=== PATIENT | male | born 1940 | race Caucasian/White ===

== ENCOUNTER 2021-11-13 22:11 | Emergency (ER) | payer OTHER ==
[~2021-11-13] VITALS: Ht 162.6 cm; Wt 90.9 kg
[2021-11-14] MEDS ORDERED: HYDROmorphone HCL 2 MG/ML VL/or syr IV ONE ×2 (02:00→06:15)
[2021-11-14 03:11] LABS: Basophils # (auto) 0.1 10 ^3/uL (0-0.2); Basophils % (auto) 0.4 % (0.0-2.0); Eosinophils # (auto) 0.1 10 ^3/uL (0-0.8); Eosinophils % (auto) 0.8 % (0.0-7.0); Hematocrit 40.1 % (41.0-53.0); Hemoglobin 12.9 g/dL (13.5-17.5); Lymphocytes # (auto) 1.7 10 ^3/uL (0.4-5.4); Lymphocytes % (auto) 12.9 % (10.0-50.0); Mean Corpuscular Hemoglobin 28.1 pg (28.0-32.0); Mean Corpuscular Hgb Conc. 32.3 g/dL (32.0-36.0); Monocytes % (auto) 7.1 % (0.0-12.0); Neutrophils # (auto) 10.6 10 ^3/uL (1.6-8.6); Neutrophils % (auto) 78.8 % (37.0-80.0); Red Blood Cells 4.61 10^6/uL (4.5-5.90); Red Cell Distribution Width 15.7 % (11.8-14.3); White Blood Cell 13.4 10^3/uL (4.4-10.8)
[2021-11-14 03:29] LABS: Calcium 8.6 mg/dL (8.5-10.1); Potassium 3.7 mmol/L (3.5-5.1)
[2021-11-14 03:31] LABS: BUN/Creatinine Ratio 18.9
[2021-11-14 03:34] LABS: Bilirubin, Total 0.6 mg/dL (0.2-1.0); Total Protein 6.2 g/dL (6.4-8.2)
[2021-11-14 10:19] VITALS: BP 149/56
== END 2021-11-14 10:40 | disposition home or self-care (01) ==
LOC: EDUNIT# 22:11 → ER 22:11 → EDBD 22:11 → ER 11-14 10:39
DX: S81.011A Laceration without foreign body, right knee, initial encounter (principal); J44.9 Chronic obstructive pulmonary disease, unspecified; E11.9 Type 2 diabetes mellitus without complications; Z20.822 Contact with and (suspected) exposure to COVID-19; X58.XXXA Exposure to other specified factors, initial encounter; Y93.89 Activity, other specified; Y92.89 Other specified places as the place of occurrence of the external cause; Y99.8 Other external cause status
CPT/HCPCS: 36415; 73562; 80053; 85025; 87426; 93005; 96374; 96376; 99285; J1170

== ENCOUNTER 2021-12-16 17:06 | Inpatient (IN) | payer OTHER ==
[~2021-12-16] VITALS: Ht 172.7 cm; Wt 97.2 kg
[2021-12-16] MEDS: SODIUM CHLORIDE 0.9% 1,000 ML IV SCH (00:20)
[2021-12-16] MEDS ORDERED: PIPERACILLIN-TAZOB 3.375GM 100 ML IV ONE (17:45)
[2021-12-16] MEDS ORDERED: SODIUM CHLORIDE 0.9% 1,000 ML IV ONE (17:45)
[2021-12-16] MEDS ORDERED: ACETAMINOPHEN 325 MG TAB PO ONE (17:45)
[2021-12-16 19:05] LABS: Basophils # (auto) 0.2 10 ^3/uL (0-0.2); Basophils % (auto) 0.9 % (0.0-2.0); Eosinophils # (auto) 0.1 10 ^3/uL (0-0.8); Eosinophils % (auto) 0.4 % (0.0-7.0); Hematocrit 43.1 % (41.0-53.0); Hemoglobin 13.7 g/dL (13.5-17.5); Lymphocytes # (auto) 0.7 10 ^3/uL (0.4-5.4); Lymphocytes % (auto) 3.6 % (10.0-50.0); Mean Corpuscular Hemoglobin 27.7 pg (28.0-32.0); Mean Corpuscular Hgb Conc. 31.8 g/dL (32.0-36.0); Mean Corpuscular Volume 87.1 fL (80.0-100.0); Monocytes # (auto) 1.5 10 ^3/uL (0-1.3); Monocytes % (auto) 7.5 % (0.0-12.0); Neutrophils # (auto) 16.9 10 ^3/uL (1.6-8.6); Neutrophils % (auto) 87.6 % (37.0-80.0); Red Blood Cells 4.94 10^6/uL (4.5-5.90); Red Cell Distribution Width 15.4 % (11.8-14.3); White Blood Cell 19.3 10^3/uL (4.4-10.8)
[2021-12-16 19:11] LABS: Albumin 2.9 g/dL (3.4-5.0); Calcium 7.7 mg/dL (8.5-10.1); Magnesium 1.7 mg/dL (1.6-2.6); Potassium 3.5 mmol/L (3.5-5.1)
[2021-12-16 19:15] LABS: BUN/Creatinine Ratio 12.6; Bilirubin, Total 0.8 mg/dL (0.2-1.0); Total Protein 6.4 g/dL (6.4-8.2)
[2021-12-16] MEDS ORDERED: MAGNESIUM SULFATE 1GM/100ML 100 ML IV ONE (19:30)
[2021-12-16 22:12] LABS: Urine Bacteria FEW /hpf (None Seen); Urine Blood 1+ /uL (Negative); Urine Hyaline Cast FEW /lpf (0 - 2); Urine WBC 242 /hpf (0 - 3); Urine WBC Clumps PRESENT /hpf (None Seen)
[2021-12-16] MEDS ORDERED: ONDANSETRON HCL 4 MG/2 ML VIAL IV PRN (22:15)
[2021-12-16] MEDS ORDERED: MORPHINE SULFATE INJ 2 MG/ml SYRG IV PRN (22:15)
[2021-12-16] MEDS ORDERED: NITROGLYCERIN 0.4 MG SL TAB SL PRN (22:15)
[2021-12-16] MEDS ORDERED: ALBUMIN 5% 250 ML IV ONE (22:15)
[2021-12-16] MEDS ORDERED: DEXTROSE (50%) 50ML SYRG IV PRN (22:15)
[2021-12-16] MEDS ORDERED: CLINDAMYCIN 600MG IV 50 ML IV SCH (22:39)
[2021-12-17] VITALS (49 sets, daily range): BP systolic 77–133; BP diastolic 26–70
[2021-12-17] MEDS: ACCU-CHEK COMFORT CURVE STRIP VI SCH ×4 (00:20→17:53)
[2021-12-17] MEDS: cefTRIAXone 1GM/50ML D5W 50 ML IV SCH ×2 (00:51→21:06)
[2021-12-17] MEDS: InsuLIN REG 1unit/0.01ml Soln (100units/ml) SC SCH ×4 (01:01→17:53)
[2021-12-17] MEDS: ACETAMINOPHEN 325 MG TAB PO PRN (01:27)
[2021-12-17] MEDS ORDERED: NOREPINEPHRINE 8 MG/250ML KIT 250 ML IV ONE (06:26)
[2021-12-17] MEDS: NOREPINEPHRINE 8 MG/250ML KIT 250 ML IV SCH (06:39)
[2021-12-17 08:17] LABS: Basophils # (auto) 0.1 10 ^3/uL (0-0.2); Basophils % (auto) 0.3 % (0.0-2.0); Eosinophils # (auto) 0.2 10 ^3/uL (0-0.8); Eosinophils % (auto) 0.9 % (0.0-7.0); Hematocrit 37.2 % (41.0-53.0); Lymphocytes # (auto) 2.5 10 ^3/uL (0.4-5.4); Mean Corpuscular Hemoglobin 28.1 pg (28.0-32.0); Mean Corpuscular Hgb Conc. 32.2 g/dL (32.0-36.0); Mean Corpuscular Volume 87.2 fL (80.0-100.0); Monocytes # (auto) 2.1 10 ^3/uL (0-1.3); Monocytes % (auto) 10.9 % (0.0-12.0); Neutrophils # (auto) 14.2 10 ^3/uL (1.6-8.6); Neutrophils % (auto) 74.9 % (37.0-80.0); Red Blood Cells 4.27 10^6/uL (4.5-5.90); Red Cell Distribution Width 15.2 % (11.8-14.3); White Blood Cell 18.9 10^3/uL (4.4-10.8)
[2021-12-17 08:45] LABS: Albumin 2.8 g/dL (3.4-5.0); Calcium 7.5 mg/dL (8.5-10.1); Potassium 3.7 mmol/L (3.5-5.1)
[2021-12-17 08:49] LABS: BUN/Creatinine Ratio 13.8; Bilirubin, Total 0.8 mg/dL (0.2-1.0)
[2021-12-17] MEDS: CLINDAMYCIN 600MG IV 50 ML IV SCH ×2 (09:57→17:43)
[2021-12-17] MEDS: PANTOPRAZOLE 40 MG TAB PO SCH (10:21)
[2021-12-17] MEDS: ASPirin 81 mg TAB PO SCH (10:21)
[2021-12-17] MEDS ORDERED: ENOXAPARIN SOD 30 MG/0.3 ML SYRINGE SC ONE (11:00)
[2021-12-17] MEDS ORDERED: AMIODARONE HCL 200 MG TAB PO ONE (11:30)
[2021-12-17 11:38] LABS: Cholesterol 103 mg/dL (< 200); HDL Cholesterol 38 mg/dL (40-59); LDL Cholesterol 52 mg/dL (< 100); Triglycerides 124 mg/dL (< 150)
[2021-12-17] MEDS: SODIUM CHLORIDE 0.9% 1,000 ML IV SCH (12:13)
[2021-12-17 14:08] LABS: INR 1.15 (0.9-1.15); Partial Thromboplastin Time 28.6 sec (24.6-33.4)
[2021-12-17] MEDS ORDERED: OPTISON 3ml Vial for INJ IV ONE (14:58)
[2021-12-17] MEDS: ATORVASTATIN 20 MG TAB PO SCH (21:06)
[2021-12-17] MEDS ORDERED: AMIODARONE HCL 200 MG TAB PO SCH (22:00)
[2021-12-18] VITALS (87 sets, daily range): BP systolic 83–132; BP diastolic 34–61
[2021-12-18] MEDS: ACCU-CHEK COMFORT CURVE STRIP VI SCH ×4 (00:34→18:00)
[2021-12-18] MEDS: InsuLIN REG 1unit/0.01ml Soln (100units/ml) SC SCH ×4 (00:36→18:00)
[2021-12-18] MEDS: SODIUM CHLORIDE 0.9% 1,000 ML IV SCH ×2 (03:38→14:15)
[2021-12-18] MEDS: CLINDAMYCIN 600MG IV 50 ML IV SCH ×3 (03:38→19:00)
[2021-12-18] MEDS: NOREPINEPHRINE 8 MG/250ML KIT 250 ML IV SCH (06:30)
[2021-12-18 09:27] LABS: Basophils # (auto) 0.1 10 ^3/uL (0-0.2); Basophils % (auto) 0.4 % (0.0-2.0); Eosinophils # (auto) 0.3 10 ^3/uL (0-0.8); Eosinophils % (auto) 2.1 % (0.0-7.0); Hematocrit 35.1 % (41.0-53.0); Hemoglobin 11.1 g/dL (13.5-17.5); Lymphocytes # (auto) 1.2 10 ^3/uL (0.4-5.4); Mean Corpuscular Hemoglobin 27.8 pg (28.0-32.0); Mean Corpuscular Hgb Conc. 31.6 g/dL (32.0-36.0); Monocytes % (auto) 8.4 % (0.0-12.0); Neutrophils # (auto) 9.4 10 ^3/uL (1.6-8.6); Neutrophils % (auto) 79.1 % (37.0-80.0); Red Blood Cells 3.98 10^6/uL (4.5-5.90); Red Cell Distribution Width 14.8 % (11.8-14.3); White Blood Cell 11.8 10^3/uL (4.4-10.8)
[2021-12-18 09:43] LABS: BUN/Creatinine Ratio 15.5; Calcium 7.1 mg/dL (8.5-10.1); Potassium 3.4 mmol/L (3.5-5.1)
[2021-12-18] MEDS ORDERED: POTASSIUM CHL 20 Meq TABLET PO ONE (10:30)
[2021-12-18] MEDS: PANTOPRAZOLE 40 MG TAB PO SCH (11:20)
[2021-12-18] MEDS: ASPirin 81 mg TAB PO SCH (11:20)
[2021-12-18] MEDS: ENOXAPARIN SOD 30 MG/0.3 ML SYRINGE SC SCH (11:20)
[2021-12-18] MEDS: cefTRIAXone 1GM/50ML D5W 50 ML IV SCH (21:15)
[2021-12-18] MEDS: ATORVASTATIN 20 MG TAB PO SCH (21:56)
[2021-12-19] VITALS (42 sets, daily range): BP systolic 77–172; BP diastolic 38–106
[2021-12-19] MEDS: ACCU-CHEK COMFORT CURVE STRIP VI SCH ×4 (00:38→18:00)
[2021-12-19] MEDS: ACETAMINOPHEN 325 MG TAB PO PRN (00:38)
[2021-12-19] MEDS: CLINDAMYCIN 600MG IV 50 ML IV SCH ×3 (01:52→18:00)
[2021-12-19] MEDS: SODIUM CHLORIDE 0.9% 1,000 ML IV SCH ×2 (03:35→16:55)
[2021-12-19 05:25] LABS: Basophils # (auto) 0.1 10 ^3/uL (0-0.2); Basophils % (auto) 0.6 % (0.0-2.0); Eosinophils # (auto) 0.3 10 ^3/uL (0-0.8); Eosinophils % (auto) 3.3 % (0.0-7.0); Hematocrit 33.2 % (41.0-53.0); Lymphocytes # (auto) 1.3 10 ^3/uL (0.4-5.4); Lymphocytes % (auto) 12.6 % (10.0-50.0); Mean Corpuscular Hemoglobin 28.9 pg (28.0-32.0); Mean Corpuscular Hgb Conc. 33.1 g/dL (32.0-36.0); Mean Corpuscular Volume 87.2 fL (80.0-100.0); Monocytes # (auto) 1.1 10 ^3/uL (0-1.3); Monocytes % (auto) 10.2 % (0.0-12.0); Neutrophils # (auto) 7.6 10 ^3/uL (1.6-8.6); Neutrophils % (auto) 73.3 % (37.0-80.0); Red Cell Distribution Width 15.3 % (11.8-14.3); White Blood Cell 10.4 10^3/uL (4.4-10.8)
[2021-12-19 05:28] LABS: Calcium 7.3 mg/dL (8.5-10.1); Potassium 3.6 mmol/L (3.5-5.1)
[2021-12-19 05:31] LABS: BUN/Creatinine Ratio 14.6; Bilirubin, Total 0.5 mg/dL (0.2-1.0); Total Protein 4.9 g/dL (6.4-8.2)
[2021-12-19] MEDS: InsuLIN REG 1unit/0.01ml Soln (100units/ml) SC SCH ×4 (06:00→18:00)
[2021-12-19] MEDS: NOREPINEPHRINE 8 MG/250ML KIT 250 ML IV SCH (06:30)
[2021-12-19] MEDS: PANTOPRAZOLE 40 MG TAB PO SCH (10:00)
[2021-12-19] MEDS: ENOXAPARIN SOD 30 MG/0.3 ML SYRINGE SC SCH (10:00)
[2021-12-19] MEDS: ASPirin 81 mg TAB PO SCH (10:00)
[2021-12-19] MEDS: ALBUMIN 25% 50 ML IV SCH ×3 (13:50→14:47)
[2021-12-19] MEDS: cefTRIAXone 1GM/50ML D5W 50 ML IV SCH (21:16)
[2021-12-19] MEDS: ATORVASTATIN 20 MG TAB PO SCH (21:21)
[2021-12-20] VITALS (18 sets, daily range): BP systolic 125–157; BP diastolic 47–77
[2021-12-20] MEDS: ACCU-CHEK COMFORT CURVE STRIP VI SCH ×4 (01:25→17:37)
[2021-12-20] MEDS: CLINDAMYCIN 600MG IV 50 ML IV SCH ×3 (02:44→19:15)
[2021-12-20] MEDS: SODIUM CHLORIDE 0.9% 1,000 ML IV SCH (05:54)
[2021-12-20] MEDS: InsuLIN REG 1unit/0.01ml Soln (100units/ml) SC SCH ×4 (06:00→17:37)
[2021-12-20 06:03] LABS: Basophils # (auto) 0 10 ^3/uL (0-0.2); Basophils % (auto) 0.5 % (0.0-2.0); Eosinophils # (auto) 0.3 10 ^3/uL (0-0.8); Hematocrit 35.6 % (41.0-53.0); Hemoglobin 11.4 g/dL (13.5-17.5); Lymphocytes # (auto) 1.2 10 ^3/uL (0.4-5.4); Lymphocytes % (auto) 15.2 % (10.0-50.0); Mean Corpuscular Hemoglobin 28.6 pg (28.0-32.0); Mean Corpuscular Hgb Conc. 32.1 g/dL (32.0-36.0); Mean Corpuscular Volume 89.2 fL (80.0-100.0); Monocytes # (auto) 0.8 10 ^3/uL (0-1.3); Monocytes % (auto) 9.3 % (0.0-12.0); Neutrophils # (auto) 5.8 10 ^3/uL (1.6-8.6); Red Blood Cells 3.99 10^6/uL (4.5-5.90); Red Cell Distribution Width 14.9 % (11.8-14.3); White Blood Cell 8.2 10^3/uL (4.4-10.8)
[2021-12-20 06:19] LABS: Albumin 2.5 g/dL (3.4-5.0); Calcium 7.8 mg/dL (8.5-10.1)
[2021-12-20 06:22] LABS: BUN/Creatinine Ratio 14.3; Bilirubin, Total 0.5 mg/dL (0.2-1.0); Total Protein 5.1 g/dL (6.4-8.2)
[2021-12-20] MEDS: NOREPINEPHRINE 8 MG/250ML KIT 250 ML IV SCH (06:30)
[2021-12-20] MEDS: ENOXAPARIN SOD 30 MG/0.3 ML SYRINGE SC SCH (10:13)
[2021-12-20] MEDS: PANTOPRAZOLE 40 MG TAB PO SCH (10:13)
[2021-12-20] MEDS: ASPirin 81 mg TAB PO SCH (10:13)
[2021-12-20] MEDS: MEROPENEM 1GM IVPB 100 ML IV SCH ×2 (15:51→20:27)
[2021-12-20] MEDS: ATORVASTATIN 20 MG TAB PO SCH (20:27)
[2021-12-21 00:01] VITALS: BP 153/57
[2021-12-21] MEDS: CLINDAMYCIN 600MG IV 50 ML IV SCH ×3 (02:14→17:46)
[2021-12-21 04:00] VITALS: BP 141/64
[2021-12-21] MEDS: ACCU-CHEK COMFORT CURVE STRIP VI SCH ×5 (04:47→23:50)
[2021-12-21] MEDS: MEROPENEM 1GM IVPB 100 ML IV SCH (05:02)
[2021-12-21] MEDS: InsuLIN REG 1unit/0.01ml Soln (100units/ml) SC SCH ×5 (05:41→23:50)
[2021-12-21 08:00] VITALS: BP 153/73
[2021-12-21] MEDS: ENOXAPARIN SOD 30 MG/0.3 ML SYRINGE SC SCH (09:50)
[2021-12-21] MEDS: ASPirin 81 mg TAB PO SCH (09:51)
[2021-12-21] MEDS: PANTOPRAZOLE 40 MG TAB PO SCH (09:51)
[2021-12-21] MEDS: ERTAPENEM SOD INJ 1 GM in SODIUM CHL 0.9% 50 ML IV SCH (11:49)
[2021-12-21 12:00] VITALS: BP 144/71
[2021-12-21 16:00] VITALS: BP 147/64
[2021-12-21] MEDS ORDERED: LISINOPRIL 20 MG TAB PO ONE (16:00)
[2021-12-21] MEDS: ATORVASTATIN 20 MG TAB PO SCH (21:41)
[2021-12-21 22:00] VITALS: BP 126/69
[2021-12-22] MEDS: CLINDAMYCIN 600MG IV 50 ML IV SCH ×3 (01:31→17:40)
[2021-12-22 05:00] VITALS: BP 132/60
[2021-12-22] MEDS: InsuLIN REG 1unit/0.01ml Soln (100units/ml) SC SCH ×3 (05:37→17:40)
[2021-12-22] MEDS: ACCU-CHEK COMFORT CURVE STRIP VI SCH ×3 (05:37→17:40)
[2021-12-22 06:26] LABS: Hematocrit 36.3 % (41.0-53.0); Mean Corpuscular Hemoglobin 28.7 pg (28.0-32.0); Mean Corpuscular Hgb Conc. 33.1 g/dL (32.0-36.0); Mean Corpuscular Volume 86.6 fL (80.0-100.0); Red Blood Cells 4.19 10^6/uL (4.5-5.90); Red Cell Distribution Width 14.7 % (11.8-14.3); White Blood Cell 8.9 10^3/uL (4.4-10.8)
[2021-12-22 06:30] LABS: Calcium 8.1 mg/dL (8.5-10.1); Potassium 3.7 mmol/L (3.5-5.1)
[2021-12-22 06:32] LABS: Basophils % (manual) 0 (0.0-2.0); Metamyelocytes % 0; Myelocytes % 0; Promyelocytes % 0; Reactive Lymphocytes 0
[2021-12-22 06:33] LABS: BUN/Creatinine Ratio 13.5
[2021-12-22 07:54] LABS: Band Neutrophils % (manual) 4; Blast Cells 1; Eosinophils % (manual) 4 (0-7); Lymphocytes % (manual) 24 (10.0-50.0); Monocytes % (manual) 6 (0-12)
[2021-12-22 09:00] VITALS: BP 134/67
[2021-12-22] MEDS: ERTAPENEM SOD INJ 1 GM in SODIUM CHL 0.9% 50 ML IV SCH (09:25)
[2021-12-22] MEDS: ASPirin 81 mg TAB PO SCH (09:59)
[2021-12-22] MEDS: PANTOPRAZOLE 40 MG TAB PO SCH (09:59)
[2021-12-22] MEDS: ENOXAPARIN SOD 30 MG/0.3 ML SYRINGE SC SCH (10:00)
[2021-12-22] MEDS: LISINOPRIL 20 MG TAB PO SCH (10:00)
[2021-12-22 13:00] VITALS: BP 122/71
[2021-12-22 17:00] VITALS: BP 129/69
[2021-12-22] MEDS: ATORVASTATIN 20 MG TAB PO SCH (21:05)
[2021-12-23] MEDS: ACCU-CHEK COMFORT CURVE STRIP VI SCH ×5 (00:10→23:08)
[2021-12-23 05:00] VITALS: BP 115/69
[2021-12-23] MEDS: InsuLIN REG 1unit/0.01ml Soln (100units/ml) SC SCH ×5 (06:00→23:08)
[2021-12-23 08:51] VITALS: BP 134/60
[2021-12-23] MEDS: ENOXAPARIN SOD 30 MG/0.3 ML SYRINGE SC SCH (10:41)
[2021-12-23] MEDS: LISINOPRIL 20 MG TAB PO SCH (10:41)
[2021-12-23] MEDS: ERTAPENEM SOD INJ 1 GM in SODIUM CHL 0.9% 50 ML IV SCH (10:41)
[2021-12-23] MEDS: ASPirin 81 mg TAB PO SCH (10:42)
[2021-12-23 14:29] VITALS: BP 153/54
[2021-12-23 16:08] VITALS: BP 146/64
[2021-12-23 22:00] VITALS: BP 97/52
[2021-12-23] MEDS: ATORVASTATIN 20 MG TAB PO SCH (23:08)
[2021-12-24 05:00] VITALS: BP 139/53
[2021-12-24] MEDS: ACCU-CHEK COMFORT CURVE STRIP VI SCH ×4 (05:44→23:33)
[2021-12-24] MEDS: InsuLIN REG 1unit/0.01ml Soln (100units/ml) SC SCH ×4 (05:44→23:33)
[2021-12-24 09:00] VITALS: BP 150/73
[2021-12-24] MEDS: LISINOPRIL 20 MG TAB PO SCH (09:48)
[2021-12-24] MEDS: ASPirin 81 mg TAB PO SCH (09:48)
[2021-12-24] MEDS: ENOXAPARIN SOD 30 MG/0.3 ML SYRINGE SC SCH (09:48)
[2021-12-24] MEDS: ERTAPENEM SOD INJ 1 GM in SODIUM CHL 0.9% 50 ML IV SCH (09:49)
[2021-12-24] MEDS: ACETAMINOPHEN 325 MG TAB PO PRN (10:01)
[2021-12-24 13:00] VITALS: BP 150/74
[2021-12-24 16:41] VITALS: BP 128/56
[2021-12-24] MEDS: ATORVASTATIN 20 MG TAB PO SCH (21:49)
[2021-12-24 22:24] VITALS: BP 160/49
[2021-12-25 05:00] VITALS: BP 113/47
[2021-12-25] MEDS: InsuLIN REG 1unit/0.01ml Soln (100units/ml) SC SCH ×4 (06:00→22:53)
[2021-12-25] MEDS: ACCU-CHEK COMFORT CURVE STRIP VI SCH ×4 (06:05→22:53)
[2021-12-25 08:01] VITALS: BP 145/44
[2021-12-25] MEDS: ERTAPENEM SOD INJ 1 GM in SODIUM CHL 0.9% 50 ML IV SCH (10:00)
[2021-12-25] MEDS: ENOXAPARIN SOD 30 MG/0.3 ML SYRINGE SC SCH (11:03)
[2021-12-25] MEDS: LISINOPRIL 20 MG TAB PO SCH (11:03)
[2021-12-25] MEDS: ASPirin 81 mg TAB PO SCH (11:03)
[2021-12-25 12:11] VITALS: BP 145/44
[2021-12-25 16:54] VITALS: BP 144/57
[2021-12-25 17:35] VITALS: BP 145/44
[2021-12-25 22:00] VITALS: BP 142/54
[2021-12-25] MEDS: ATORVASTATIN 20 MG TAB PO SCH (22:53)
[2021-12-26 05:00] VITALS: BP 109/48
[2021-12-26] MEDS: InsuLIN REG 1unit/0.01ml Soln (100units/ml) SC SCH (06:00)
[2021-12-26] MEDS: ACCU-CHEK COMFORT CURVE STRIP VI SCH (06:26)
[2021-12-26 09:00] VITALS: BP 119/71
[2021-12-26] MEDS: ASPirin 81 mg TAB PO SCH (09:12)
[2021-12-26] MEDS: ENOXAPARIN SOD 30 MG/0.3 ML SYRINGE SC SCH (09:12)
[2021-12-26] MEDS: LISINOPRIL 20 MG TAB PO SCH (09:18)
[2021-12-26] MEDS: ERTAPENEM SOD INJ 1 GM in SODIUM CHL 0.9% 50 ML IV SCH (10:00)
== END 2021-12-26 11:36 | disposition home or self-care (01) | DRG 871 ==
LOC: ER 17:06 → EDBD 17:06 → TELE 22:28 → DOU IN ICU 22:59 → TELE-WESTW 12-21 18:34
PROVIDERS: ADMIT Nurse Practitioner; ATTEND Internal Medicine Pulmonary Disease
PROC: 05HA33Z Insertion of Infusion Device into Left Brachial Vein, Percutaneous Approach (ICD-10-PCS; principal; 2021-12-17)
PROC: B54NZZA Ultrasonography of Left Upper Extremity Veins, Guidance (ICD-10-PCS; 2021-12-17)
PROC: 05HB33Z Insertion of Infusion Device into Right Basilic Vein, Percutaneous Approach (ICD-10-PCS; 2021-12-19)
PROC: B54MZZA Ultrasonography of Right Upper Extremity Veins, Guidance (ICD-10-PCS; 2021-12-19)
DX: A41.9 Sepsis, unspecified organism (principal); I21.A1 Myocardial infarction type 2; J96.21 Acute and chronic respiratory failure with hypoxia; R65.21 Severe sepsis with septic shock; L03.115 Cellulitis of right lower limb; N17.9 Acute kidney failure, unspecified; J44.9 Chronic obstructive pulmonary disease, unspecified; I44.0 Atrioventricular block, first degree; N18.9 Chronic kidney disease, unspecified; I48.91 Unspecified atrial fibrillation; N40.0 Benign prostatic hyperplasia without lower urinary tract symptoms; N30.90 Cystitis, unspecified without hematuria; D64.9 Anemia, unspecified; E11.22 Type 2 diabetes mellitus with diabetic chronic kidney disease; E66.9 Obesity, unspecified; M25.462 Effusion, left knee; Z20.822 Contact with and (suspected) exposure to COVID-19; S83.512A Sprain of anterior cruciate ligament of left knee, initial encounter; K21.9 Gastro-esophageal reflux disease without esophagitis; M10.9 Gout, unspecified; R00.1 Bradycardia, unspecified; W18.39XA Other fall on same level, initial encounter; Y93.01 Activity, walking, marching and hiking; Y92.89 Other specified places as the place of occurrence of the external cause; Z88.5 Allergy status to narcotic agent; Z86.711 Personal history of pulmonary embolism; Y99.8 Other external cause status; Z91.81 History of falling
CPT/HCPCS: 36415; 70450; 71045; 71250; 73700; 80048; 80053; 80061; 81001; 82550; 82962; 83036; 83605; 83735; 83880; 84443; 84484; 85007; 85025; 85027; 85610; 85730; 87040; 87081; 87086; 87088; 87186; 87205; 93005; 93306; 93886; 96365; 96366; 96367; 97110; 97116; 97163; 97530; 99291; G0378; J0696; J1335; J1815; J2185; J2543; J3490; Q9956

== ENCOUNTER 2021-12-26 14:29 | Emergency (ER) | payer OTHER ==
[~2021-12-26] VITALS: Ht 165.1 cm; Wt 91.0 kg
[2021-12-26 15:29] LABS: Basophils # (auto) 0 10 ^3/uL (0-0.2); Basophils % (auto) 0.3 % (0.0-2.0); Eosinophils # (auto) 0.1 10 ^3/uL (0-0.8); Eosinophils % (auto) 0.6 % (0.0-7.0); Hematocrit 37.1 % (41.0-53.0); Hemoglobin 11.9 g/dL (13.5-17.5); Lymphocytes # (auto) 1.6 10 ^3/uL (0.4-5.4); Lymphocytes % (auto) 10.8 % (10.0-50.0); Mean Corpuscular Hemoglobin 27.8 pg (28.0-32.0); Mean Corpuscular Hgb Conc. 32.2 g/dL (32.0-36.0); Mean Corpuscular Volume 86.6 fL (80.0-100.0); Monocytes % (auto) 6.8 % (0.0-12.0); Neutrophils # (auto) 12.1 10 ^3/uL (1.6-8.6); Neutrophils % (auto) 81.5 % (37.0-80.0); Nucleated Red Blood Cells % 0.1 %; Red Blood Cells 4.28 10^6/uL (4.5-5.90); White Blood Cell 14.8 10^3/uL (4.4-10.8)
[2021-12-26 15:48] LABS: Albumin 2.5 g/dL (3.4-5.0); BUN/Creatinine Ratio 12.8; Calcium 8.3 mg/dL (8.5-10.1); Magnesium 1.6 mg/dL (1.6-2.6); Potassium 4.1 mmol/L (3.5-5.1)
[2021-12-26 15:51] LABS: Total Protein 5.9 g/dL (6.4-8.2)
[2021-12-26] MEDS ORDERED: cefTRIAXone 1GM/50ML D5W 50 ML IV ONE (21:30)
[2021-12-26 21:56] VITALS: BP 110/46
== END 2021-12-26 22:39 | disposition short-term general hospital (02) ==
LOC: EDBD 14:29 → ER 14:31
DX: I95.9 Hypotension, unspecified (principal); R53.1 Weakness; R74.02 Elevation of levels of lactic acid dehydrogenase [LDH]; J44.9 Chronic obstructive pulmonary disease, unspecified; E11.9 Type 2 diabetes mellitus without complications; R07.89 Other chest pain; Z88.5 Allergy status to narcotic agent; Z20.822 Contact with and (suspected) exposure to COVID-19
CPT/HCPCS: 36415; 71045; 80053; 83605; 83735; 83880; 84484; 85025; 87426; 93005; 96365; 99285; J0696